=== PATIENT | female | born 1970 | race Caucasian/White ===

== ENCOUNTER 2016-03-23 11:42 | Emergency (ER) | payer BC ==
--- NOTE | 2016-03-23 11:58 | CPEKG ---
Heart Rate: 66 RR Interval: 909 P-R Interval: 176 QRSD Interval: 94 QT Interval: 448 QTC Interval: 470 P [place]: 42 QRS [place]: 15 T Wave [place]: 28 EKG Severity - NORMAL ECG - EKG Impression: SINUS RHYTHM Electronically Signed By: Jaron Bowens 25-Mar-2016 08:55:53
[2016-03-23 12:08] VITALS: TEMP 98.1
[2016-03-23 13:04] LABS: % IMMATURE GRANULYOCYTES 0.2 % (0.0-1.1); ABSOLUTE IMMATURE GRANULOCYTES 0.01 10^3/uL (0.00-0.10); ADD DIFF? NO; ADD MORPH? NO; ADD SCAN? NO; ATYPICAL LYMPHOCYTE FLAG 10 (0-99); FRAGMENT RBC FLAG 0 (0-99); HEMATOCRIT 37.7 % (38.0-47.0); HEMOGLOBIN 12.5 g/dL (12.6-16.3); LEFT SHIFT FLG 0 (0-99); LIPEMIA HEMOLYSIS FLAG 80 (0-99); MEAN CELL HEMOGLOBIN 30.4 pg (27.9-34.1); MEAN CELL HEMOGLOBIN CONCENTR. 33.2 g/dL (32.4-36.7); MEAN CELL VOLUME 91.7 fL (81.5-99.8); MEAN PLATELET VOLUME 10.9 fL (8.7-11.7); PLATELET CLUMPS FLAG 0 (0-99); PLATELET COUNT 203 10^3/uL (150-400); RED BLOOD CELL COUNT 4.11 10^6/uL (4.18-5.33); RED CELL DISTRIBUTION WIDTH 11.9 % (11.5-15.2)
[2016-03-23 13:16] LABS: INR 0.99 (0.83-1.16); PROTIME(PATIENT) 12.9 SEC (12.0-15.0)
[2016-03-23 13:17] LABS: APTT 29.7 SEC (23.0-38.0)
[2016-03-23 13:22] LABS: ALANINE AMINOTRANSFERASE 25 IU/L (9-52); ALKALINE PHOSPHATASE 57 IU/L (38-126); ANION GAP 10 mEq/L (8-16); ASPARTATE AMINOTRANSFERASE 23 IU/L (14-46); BILIRUBIN,TOTAL 0.9 mg/dL (0.1-1.4); CALCIUM 8.8 mg/dL (8.5-10.4); CARBON DIOXIDE 27 mEq/l (22-31); CHLORIDE 104 mEq/L (97-110); CREATININE 0.7 mg/dL (0.6-1.0); GLOMERULAR FILTRATION RATE > 60; GLUCOSE 81 mg/dL (70-100); SODIUM 141 mEq/L (134-144); TOTAL PROTEIN 7.2 g/dL (6.3-8.2)
[2016-03-23 13:33] LABS: TROPONIN I < 0.012 ng/mL (0-0.034)
--- NOTE | 2016-03-23 13:39 | DX ---
PA and Lateral Chest Indication: Palpitations and shortness of breath Comparison: None Findings: The lungs are well aerated and clear. No pneumothorax, edema, consolidation or effusion. Th e heart size is normal. Minimal degenerative disk disease present in the mid thoracic spine. Impression: Clear lungs. No acute process.
--- NOTE | 2016-03-23 14:08 | UCPHY ---
H & P Patient Type: New Chief Complaint Nursing Narrative: Heart palpitations started 03/22/16 @ 1930 Time Seen by Provider: 03/23/16 11:49 HPI/ROS: 45-year-old female complains of intermittent palpitations in her left chest that began last night at dinner time and last few minutes at a time with no associated symptoms. She does state that today she feels like she just can't take a deep breath in. No chest pain no nausea no vomiting no diarrhea no fevers no chills. No leg swelling Patient recently traveled to [place] via airplane and did do a fair amount of driving around to visit a sick relative, no tries longer than 1-2 hours, no leg swelling no leg pain. No history of blood clots in her family. Source: Patient, Family Exam Limitations: No limitations - Personal History Current Tetanus/Diphtheria Vaccine: Unsure Current Tetanus Diphtheria and Acellular Pertussis (TDAP): Unsure - Medical/Surgical History Hx Asthma: No Hx Diabetes: No Hx Cardiac Disease: No Hx Renal Disease: No Hx Cirrhosis: No Hx Alcoholism: No Hx HIV/AIDS: No Hx Splenectomy or Spleen Trauma: No Other PMH: - Family History Significant Family History: No pertinent family hx - Social History Smoking Status: Never smoked Alcohol Use: Rarely Drug Use: None - Physical Exam Exam: 45-year-old female alert and oriented, nontoxic appearance, afebrile HEENT atraumatic normocephalic, extraocular muscles intact, anicteric Oropharynx negative for erythema negative exudate, tolerating her own secretions Neck supple no meningismus Lungs clear to auscultation bilaterally Heart regular rate and rhythm without murmur rub or gallop Abdomen nondistended normoactive bowel sounds soft nontender Back no CVA tenderness, no step-offs, no spinal tenderness Extremities no cyanosis clubbing or edema Neuro alert and oriented, no focal deficits Constitutional: Initial Vital Signs Temperature (C) 36.7 C 03/23/16 12:01 Heart Rate 68 03/23/16 12:01 Respiratory Rate 14 03/23/16 12:01 Blood Pressure 147/92 H 03/23/16 12:01 O2 Sat (%) 96 03/23/16 12:01 O2 Delivery Mode Room Air Allergies/Adverse Reactions: No Allergies [NKDA] Allergy (Verified 10/09/09 17:21) Medical Decision Making - Diagnostics EKG Interpretation: Normal sinus rhythm ED Course/Re-evaluation: Patient seen and evaluated for heart palpitations Differential diagnosis Pulmonary embolus, myocardial infarction, hyperthyroidism, dehydration, anxiety , fatigue Labs all within normal limits Troponin negative D-dimer negative Chest x-ray negative EKG normal sinus rhythm TSH normal Impression Mild dehydration Palpitations unknown etiology Plan Patient given IV fluids in urgent care Discussed all normal findings above Patient to follow up with primary care physician - Data Points Laboratory Results: Laboratory Results 03/23/16 12:58 03/23/16 12:58 Departure - Departure Disposition: Home, Routine, Self-Care Clinical Impression: Palpitation Condition: Good Instructions: Palpitations (ED) Referrals: Saman Paez MD [Primary Care Provider] - As per Instructions - PQRS PQRS Measurement: 134: Depression screening and followup, PRIME MD-PHQ2 (12 years and older) Over the last 2 weeks, how often have you been bothered by any of the following problems? 1. Feeling down, depressed, or hopeless? 2. Little interest or pleasure in doing things? Patient answered no to both 1 and 2 130: Documentation of medications. Reviewed all patient medications, doses, route and frequency. 226: Do you smoke? No. 47: 65 and older: Advanced care planning. Patient designates surrogate decision maker as spouse.. [Patient has advanced directive.] 51: 18 years old and older with diagnosis of COPD, spirometry performance. [Patient has no history of COPD 52: 18 years old and older with COPD and symptoms of COPD or FEV1<60% predicted prescribed a B Agonist. [Spirometry not performed; equipment not available.]
[2016-03-23 14:12] VITALS: BP 147/67
[2016-03-24 00:08] VITALS: PULSE 61; RESP 16; O2SAT 98
== END 2016-03-23 14:20 | disposition left against medical advice (07) ==
LOC: CED 11:42
DX: R00.2 Palpitations (principal)
CPT/HCPCS: 71020-PO; 80053-PO; 81025-PO; 84443-PO; 84484-PO; 85025-PO; 85378-PO; 85610-PO; 85730-PO; G0463-PO